=== PATIENT | female | born 1970 | race Caucasian/White ===

== ENCOUNTER 2018-07-23 16:47 | Emergency (ER) | payer BC ==
[2018-07-23] MEDS ORDERED: HYDROcodone/ACETAMIN 5-325 MG* 1 TAB PO ONE (17:56)
--- NOTE | 2018-07-23 18:11 | RAD ---
INDICATION: Right shoulder pain x3 days. COMPARISON: None. TECHNIQUE: 4 views of the right shoulder were obtained. FINDINGS: The adequately corticated bones are in normal alignment. Joint spaces appear maintained. No fracture, dislocation or focal bony abnormality is seen. IMPRESSION: Normal radiograph of the right shoulder. If the patient's symptoms persist, follow-up imaging is recommended.
--- NOTE | 2018-07-23 18:37 | ED ---
Upper Extremity Pain - HPI Summary HPI Summary: Pt is a 47 y/o female who presents to the ED c/o right shoulder pain. She fell down 2 stairs 1 week ago and had mild pain of her upper right shoulder. 3 days ago she lost mobility in her right arm, and the pain moved down to her elbow. She now cannot lift her arm fully above her head due to pain. Pt denies any fever, chills, blurred vision, diplopia, sore throat, ear ache, CP, SOB, numbness, edema, abdominal pain, neck pain, hematuria, hematochezia, rash, or bruising. She has had prior shoulder injuries and initially thought this was another sprain. Pt took Ibuprofen for the pain. - History of Current Complaint Chief Complaint: JULIOhouldShe Stated Complaint: RT SHOULDER ISSUE Hx Obtained From: Patient Mechanism Of Injury: Fall From Height Of: - 2 stairs Onset/Duration: Started Days Ago - 1 week, Worse Since Timing: Constant Pain Location: Shoulder - Right, Arm - Right, Elbow - Right Aggravating Factor(s): Movement Alleviating Factor(s): Nothing Associated Signs & Symptoms: Negative: Swelling, Fever, Numbness/Tingling, Chest Pain, SOB - Allergies/Home Medications Allergies/Adverse Reactions: Allergies Allergy/AdvReac Type Severity Reaction Status Date / Time No Known Allergies Allergy Verified 07/23/18 17:02 PMH/Surg Hx/FS Hx/Imm Hx Endocrine/Hematology History: Denies: Hx Diabetes Cardiovascular History: Denies: Hx Hypertension Infectious Disease History: No Infectious Disease History: Denies: Traveled Outside the [place] in Last 30 Days - Family History Known Family History: Negative: Hypertension - Social History Alcohol Use: None Hx Substance Use: No Substance Use Type: Reports: None Hx Tobacco Use: No Smoking Status (MU): Never Smoked Tobacco Review of Systems Negative: Fever, Chills Negative: Blurred Vision, Diplopia Negative: Sore Throat, Ear Ache Negative: Chest Pain Negative: Shortness Of Breath Negative: Abdominal Pain, Other - Hematochezia Negative: hematuria Positive: Myalgia - Right [id number] pain, Decreased ROM - Due to pain. Negative: Edema Negative: Rash, Bruising Negative: Headache, Weakness, Numbness Negative: Anxious, Depressed All Other Systems Reviewed And Are Negative: No Physical Exam - Summary Physical Exam Summary: Appearance: Alert, conversive, nontoxic appearing Skin: Warm, dry, no mottling, no rashes, no contusions HEENT: EOMI, PERRL, moist mucous membranes Neck: No masses on the neck, supple Respiratory: Clear to auscultation, breath sounds present, no rales, no rhonchi , no wheezes Cardiovascular: RRR, pulses are symmetrical in both lower and upper extremities Abdomen: Soft, non-tender Bowel Sounds: Present Musculoskeletal: No CVA tenderness, no obvious deformity, full strength equal and symmetric, slow to raise arm but has full active ROM Neurological: A&Ox3, CN II-XII Intact, moving all extremities symmetrically Psychiatric: Normal affect and mood Triage Information Reviewed: Yes Vital Signs On Initial Exam: Initial Vitals Temp Pulse Resp BP Pulse Ox 98.7 F 116 16 168/93 98 07/23/18 16:58 07/23/18 16:58 07/23/18 16:58 07/23/18 16:58 07/23/18 16:58 Vital Signs Reviewed: Yes Diagnostics - Vital Signs Vital Signs Temp Pulse Resp BP Pulse Ox 07/23/18 16:58 98.7 F 116 16 168/93 98 - Laboratory Lab Statement: Any lab studies that have been ordered have been reviewed, and results considered in the medical decision making process. - Radiology Shoulder XR Xray Interpretation: No Acute Changes - Normal radiograph of the right shoulder. ED physician reviewed radiology report. Radiology Interpretation Completed By: Radiologist Course/Dx - Course Course Of Treatment: Pt is a 47 y/o female who presents to the ED c/o right shoulder pain. She fell down 2 stairs 1 week ago and had mild pain of her upper right shoulder. 3 days ago she lost mobility in her right arm, and the pain moved down to her elbow. She now cannot lift her arm fully above her head due to pain. Pt denies any fever, chills, blurred vision, diplopia, sore throat, ear ache, CP, SOB, numbness, edema, abdominal pain, neck pain, hematuria, hematochezia, rash, or bruising. A physical exam revealed full strength equal and symmetric, slow to raise arm but has full active ROM. A shoulder XR was negative. Final dx is shoulder strain. Pt will be discharged and is agreeable with this plan. - Diagnoses Provider Diagnoses: Shoulder strain Discharge - Sign-Out/Discharge Documenting (check all that apply): Patient Departure - Discharge - Discharge Plan Condition: Stable Disposition: HOME Patient Education Materials: Shoulder Sprain (ED) Forms: *Work Release Referrals: [facility] [Provider Group] Additional Instructions: no heavy lifting. Take tylenol and motrin for pain. return if worse or any new symptoms. Take all medications as previously instructed. - Attestation Statements Document Initiated by Scribe: Yes Documenting Scribe: Mercy Enriquez Provider For Whom Scribe is Documenting (Include Credential): Adina Valentine MD Scribe Attestation: Mercy Young, scribed for Adina Valentine MD on 07/23/18 at 1837.
[2018-07-23 18:52] VITALS: BP 159/90
== END 2018-07-23 18:30 | disposition home or self-care (01) ==
LOC: ED 16:47
DX: S46.911A Strain of unspecified muscle, fascia and tendon at shoulder and upper arm level, right arm, initial encounter (principal); M25.511 Pain in right shoulder; W10.9XXA Fall (on) (from) unspecified stairs and steps, initial encounter; Y92.9 Unspecified place or not applicable
CPT/HCPCS: 99281